=== PATIENT | male | born 1975 | race Caucasian/White ===

== ENCOUNTER → 2018-06-14 | Outpatient (CLI) | payer OTHER ==
[~2018-06-14] MED LIST: IMITREX; MULTIVITAMIN; OMEG-14 PO; OMNIPAQUE 350 MG/ML, 100ML BOTTLE ONE; PROP40TA PO; VENL37.511 PO
== END | disposition home or self-care (01) ==
LOC: RAD 13:28
PROVIDERS: ATTEND Family Medicine
DX: R10.32 Left lower quadrant pain (principal); R10.9 Unspecified abdominal pain
CPT/HCPCS: 74177; Q9967